=== PATIENT | male | born 1990 | race Two or more races ===

== ENCOUNTER 2023-02-27 07:06 | Emergency (ER) | payer SELFPAY ==
[~2023-02-27] VITALS: Ht 170.2 cm; Wt 60.9 kg
[2023-02-27 07:42] VITALS: BP 125/93; PULSE 80; RESP 18; TEMP 98.1; O2SAT 97
[2023-02-27] MEDS ORDERED: CEPH500C PO ×3 (08:41→08:45)
[2023-02-27] MEDS ORDERED: NAPR-746 PO ×3 (08:41→08:45)
== END 2023-02-27 08:46 | disposition home or self-care (01) ==
LOC: ER 07:06
DX: S51.812A Laceration without foreign body of left forearm, initial encounter (principal); S00.03XA Contusion of scalp, initial encounter; S01.03XA Puncture wound without foreign body of scalp, initial encounter; Z88.0 Allergy status to penicillin; W18.09XA Striking against other object with subsequent fall, initial encounter; Y93.89 Activity, other specified; Y92.89 Other specified places as the place of occurrence of the external cause; Y99.8 Other external cause status
CPT/HCPCS: 12002; 70450